=== PATIENT | male | born 1975 | race Two or more races ===

== ENCOUNTER 2017-04-23 17:28 | Emergency (ER) | payer OTHER ==
--- NOTE | 2017-04-23 18:25 | PDOC ---
Rapid Medical Evaluation Time Seen by Provider: 04/23/17 18:13 Medical Evaluation: Allergies Allergy/AdvReac Type Severity Reaction Status Date / Time No Known Drug Allergies Allergy Verified 07/12/13 07:12 04/23/17 18:16 I have performed a brief in-person evaluation of this patient. The patient presents with a chief complaint of: Right testicular swelling, dysuria, no hematuria, + back pain. Generalized body aches and pains. Has been having urinary discomfort for one month. Pertinent physical exam findings: Unable to assess testicle in triage, no CVA tenderness. Abdomen is soft, supra pubic tenderness. I have ordered the following: Right testicular US, UA, UC. The patient will proceed to the ED for further evaluation. Discharge Disposition - Diagnosis Epididymitis - Discharge Dispostion Disposition: HOME Condition at time of disposition: Good - Referrals Referrals: Abdirahman Polanco MD [Staff Physician] - Cindi Fisher MD [Primary Care Provider] - - Patient Instructions Printed Discharge Instructions: DI for Epididymitis Additional Instructions: Please return to the ER if you experience concerning or worsening symptoms including worsening pain, fevers, chest pain, or difficulty breathing. You were seen in the ER for testicular swelling. Your testing showed an infection called epiditimitis. We have given you antibiotics here in the ER. We ask that you refrain from sexual intercourse for the next week as the infection can be cause from sexually transmitted infection. It is extremely important that you call to schedule a follow up appointment with Dr. Polanco with Urology to be evaluated within 1 week and to follow up with your test results. - Post Discharge Activity
[2017-04-23 18:36] VITALS: BP 137/88; PULSE 92; TEMP 99.3; BMI 36.5
[2017-04-23 18:49] LABS: URINE APPEARANCE CLOUDY; URINE BILIRUBIN NEGATIVE (NEGATIVE); URINE BLOOD 2+ (NEGATIVE); URINE COLOR YELLOW; URINE GLUCOSE (UA) NEGATIVE (NEGATIVE); URINE KETONE NEGATIVE (NEGATIVE); URINE NITRITE NEGATIVE (NEGATIVE); URINE PROTEIN 1+ (NEGATIVE); URINE UROBILINOGEN NEGATIVE mg/dL (0.2-1.0)
[2017-04-23 18:50] LABS: URINE LEUK ESTERASE 3+ (NEGATIVE)
--- NOTE | 2017-04-23 19:41 | PDOC ---
History of Present Illness - General Chief Complaint: Penile Drainage Stated Complaint: PAIN Time Seen by Provider: 04/23/17 18:13 - History of Present Illness Initial Comments: 04/23/17 20:43 The patient is a 41 year old male with no significant PMH who presents for evaluation of right testicular swelling. The patient reports a 5 day history of burning and pain on urination with some whitish discharge. He then notes 3 days of right testicular swelling with associated pain and body aches prompting his presentation to the ED today. He states that he has been taking ibuprofen as needed for pain management. He notes that he is sexually active and monogamous with his with last intercourse being 3 days ago. He denies fevers, chest pain, SOB, abdominal pain, nausea, vomiting, or changes with bowel movements. Past History - Past Medical History Allergies/Adverse Reactions: Allergies Allergy/AdvReac Type Severity Reaction Status Date / Time No Known Drug Allergies Allergy Verified 07/12/13 07:12 Home Medications: Ambulatory Orders NK [No Known Home Medication] 04/23/17 Anemia: No Asthma: No Cancer: No Cardiac Disorders: No CVA: No COPD: No CHF: No Dementia: No Diabetes: No GI Disorders: No Disorders: No HTN: No Hypercholesterolemia: Yes (BORDERLINE) Liver Disease: No Seizures: No Thyroid Disease: No - Immunization History Immunization Up to Date: Yes - Suicide/Smoking/Psychosocial Hx Smoking Status: No Smoking History: Never smoked Have you smoked in the past 12 months: No Number of Cigarettes Smoked Daily: 0 Hx Alcohol Use: No Substance Use Type: None Hx Substance Use Treatment: No Review of Systems - Review of Systems Comments:: 04/23/17 20:47 Constitutional: Body aches. No fevers, chills, fatigue, HEENT: No Rhinorrhea, nasal congestion, Cardiovascular: No chest pain, syncope, palpitations, lightheadedness Respiratory: No Cough, SOB, Hemoptysis, Gastrointestinal: No Abdominal pain, Nausea, Vomiting, Constipation, Diarrhea, Melena Genitourinary: Dysuria and discharge. Testicular swelling. No Frequency, Urgency, Hesitancy, Hematuria, Flank pain Musculoskeletal: No Myalgia, arthralgia Skin: No rashes, bruising, pallor Neurologic: No Headache, Dizziness, Numbness, Weakness, or Tingling Psychiatric: No Hallucinations. No SI or HI *Physical Exam - Vital Signs Last Vital Signs Temp Pulse Resp BP Pulse Ox 99.3 F 92 H 18 137/88 99 04/23/17 18:21 04/23/17 18:21 04/23/17 18:21 04/23/17 18:21 04/23/17 18:21 - Physical Exam Comments: 04/23/17 20:48 General Appearance: Nourished. No Apparent Distress HEENT: EOMI, ASH. No Pharyngeal Erythema, Tonsillar Exudate, Tonsillar Erythema Neck: No Cervical Lymphadenopathy Respiratory/Chest: Lungs Clear, Normal Breath Sounds. No Crackles, Rales, Rhonchi, Wheezing Cardiovascular: Regular Rhythm, Regular Rate. No Murmur, Gallops, Rubs Gastrointestinal/Abdominal: Normal Bowel Sounds, Soft. No Guarding, Rebound, Tenderness Genital Exam: Obvious right sided scrotal swelling with tenderness to palpation of the right epididimis. No discharge noted. Normal left scrotal exam. No masses noted. Musculoskeletal: No CVA Tenderness Extremity: Normal Capillary Refill Integumentary: Normal Color, Dry, Warm Neurologic: Fully Oriented, Alert, Normal Mood/Affect, Normal Response, ED Treatment Course - ADDITIONAL ORDERS Additional order review: Laboratory Results 04/23/17 18:28 Urine Color Yellow Urine Appearance Cloudy Urine pH 5.0 Ur Specific [place] 1.021 Urine Protein 1+ H Urine Glucose (UA) Negative Urine Ketones Negative Urine Blood 2+ H Urine Nitrite Negative Urine Bilirubin Negative Urine Urobilinogen Negative Medical Decision Making - Medical Decision Making 04/23/17 20:49 The patient is a 41 year old male with no significant PMH who presents for evaluation of right testicular swelling. Differential includes but is not limited to: Orchitis, Epiditimitis, STI, UTI. Given the patient's physical exam , it is likely the patient's symptoms are due to an epiditimitis. We will obtain a UA and G/C to evaluate further as well as obtain a scrotal US. We will continue to monitor and reassess. 04/23/17 20:51 UA demonstrates elevated wbc consistent with an infectious etiology. US demonstrates signs consistent with acute epiditimits as read by our radiologist. We will treat the patient with ceftriaxone, azithromycin, and ibuprofen. We discussed the results with the patient and the importance of following up with a urologist. We are comfortable discharging the patient home at this time with urology follow up. The patient voiced understanding and is agreeable with the plan. *DC/Admit/Observation/Transfer Diagnosis at time of Disposition: Epididymitis - Discharge Dispostion Disposition: HOME Condition at time of disposition: Good Admit: No - Referrals Referrals: Cindi Fisher MD [Primary Care Provider] - Abdirahman Polanco MD [Staff Physician] - - Patient Instructions Printed Discharge Instructions: DI for Epididymitis Additional Instructions: Please return to the ER if you experience concerning or worsening symptoms including worsening pain, fevers, chest pain, or difficulty breathing. You were seen in the ER for testicular swelling. Your testing showed an infection called epiditimitis. We have given you antibiotics here in the ER. We ask that you refrain from sexual intercourse for the next week as the infection can be cause from sexually transmitted infection. It is extremely important that you call to schedule a follow up appointment with Dr. Polanco with Urology to be evaluated within 1 week and to follow up with your test results. - Post Discharge Activity
[2017-04-23] MEDS ORDERED: IBUPROFEN 600 MG TABLET (FP) PO ONE ×2 (19:49→21:16)
[2017-04-23] MEDS ORDERED: AZITHROMYCIN 1 GM PACKET PO ONE (20:02)
--- NOTE | 2017-04-23 20:05 | PDOC ---
Attending Attestation - Resident Resident Name: Addi Roberts - ED Attending Attestation I have performed the following: I have examined & evaluated the patient, The case was reviewed & discussed with the resident, I agree w/resident's findings & plan - HPI HPI: 04/23/17 20:03 Pt comes with testicular pain x 3 days and dysuria x 5 days. One sexual partner , 04/23/17 20:21 Pt also complains of chills. He has been taking 600 motrin around the clock. Pty is not dehydrated and he has a normal appetite. - Physicial Exam PE: 04/23/17 20:04 Pt has right testicular pain and mild swelling; epididymitis on sono, also varicocele - Medical Decision Making 04/23/17 20:04 Follow with urology; treat with zithromax 1g PO and ceftriaxone IM Follow with . 04/23/17 20:22 No IVF and no blood tests at this time. Pt understands that if he doesn't get better he should return for IV abx and IVF and further testing.
[2017-04-23 20:13] LABS: URINE BACTERIA MODERATE /hpf (NONE SEEN); URINE MUCUS RARE; URINE RBC 141 /hpf (0-3); URINE WBC 744 /hpf (3-5)
[2017-04-23] MEDS ORDERED: AZITHROMYCIN 250 MG TABLET ONE (21:15)
[2017-04-23] MEDS ORDERED: cefTRIAXone SODIUM 1 GM VIAL ONE (21:16)
[2017-04-23] MEDS ORDERED: LIDOCAINE HCL 1%, 10 MG/ML (20ML VIAL) ONE (21:17)
[2017-04-23 23:17] LABS: URINE LEUK ESTERASE 2+ (NEGATIVE)
== END 2017-04-23 21:40 | disposition home or self-care (01) ==
LOC: JERFT 17:28 → JER 17:28
DX: R36.9 Urethral discharge, unspecified (principal); N50.89 Other specified disorders of the male genital organs; N45.1 Epididymitis; I86.1 Scrotal varices
CPT/HCPCS: 36415; 76870-TC; 81003; 81015; 87086; 87491; 87591; 99282-25

== ENCOUNTER 2017-11-19 19:28 | Emergency (ER) | payer OTHER ==
[2017-11-19 19:54] VITALS: BP 134/78; PULSE 77; TEMP 97.8; BMI 39.9
--- NOTE | 2017-11-19 19:54 | PDOC ---
Rapid Medical Evaluation Time Seen by Provider: 11/19/17 19:47 Medical Evaluation: Allergies Allergy/AdvReac Type Severity Reaction Status Date / Time No Known Drug Allergies Allergy Verified 07/12/13 07:12 11/19/17 19:48 Pt presents to the ED with 5 days of headache, neck pain and shoulder pain b/l. Pt has history of migraines, however this pain feels different. States he took naproxen with little relief of symptoms. Admits to nausea. Denies vomiting, fevers. Exam: No gross neuro deficits, ambulatory. AAOX3 Orders: Labs, Urine Pt to present to the ED for further evaluation Discharge Disposition - Diagnosis Headache - Referrals - Patient Instructions - Post Discharge Activity
[2017-11-19 20:19] LABS: BASO % 1.1 % (0-2.0); EOS % 4.7 % (0-4.5); HEMATOCRIT 44.2 % (35.4-49); HEMOGLOBIN 15.1 GM/dL (11.7-16.9); LYMPH % 41.1 % (8-40); MCH 28.1 pg (25.7-33.7); MCHC 34.2 g/dl (32.0-35.9); MEAN CELL VOLUME 82.1 fl (80-96); MEAN PLT VOLUME 8.1 fl (7.5-11.1); MONO % 8.2 % (3.8-10.2); NEUT % 44.9 % (42.8-82.8); PLATELET COUNT 216 K/MM3 (134-434); RBC 5.39 M/mm3 (4.00-5.60); RDW 13.8 % (11.9-15.9); WHITE BLOOD COUNT 7.3 K/mm3 (4.0-10.0)
--- NOTE | 2017-11-19 20:56 | PDOC ---
History of Present Illness - General Chief Complaint: Head/Neck problem Stated Complaint: HEADACHE Time Seen by Provider: 11/19/17 19:47 History Source: Patient Exam Limitations: No Limitations - History of Present Illness Initial Comments: 11/19/17 20:56 Mr. Garcia is a 42 yo M with a hx of migraines (last episode 10 years ago) and GERD who presents to the emergency department with headaches for the past 5 days. The headache is located bilateral temples and behind the eyes bilaterally. This has been constant, dull, non-radiating, 9/10 pain with relieving to 5/10 with 1000 mg of tylenol (last administration 11am). In the past two days, he states he developed another headache in the occipital region to the back of the neck radiating to the trapezius. He endorses the pain worsens with light and noise and is worst in the morning while laying down. He denies the following: fever, loss of consciousness, recent visual changes, ataxia, dizziness, chest pain, SOB, recent URI, sick contacts at the home, dehydration, diarrhea, and dysuria. Pmhx: GERD, migraines (10 years ago) Past History - Past Medical History Allergies/Adverse Reactions: Allergies Allergy/AdvReac Type Severity Reaction Status Date / Time No Known Drug Allergies Allergy Verified 07/12/13 07:12 Home Medications: Ambulatory Orders Ibuprofen 600 mg PO QID PRN #16 tablet 11/19/17 Metoclopramide HCl [Reglan -] 10 mg PO TID PRN #10 tablet 11/19/17 Anemia: No Asthma: No Cancer: No Cardiac Disorders: No CVA: No COPD: No CHF: No Dementia: No Diabetes: No GI Disorders: No Disorders: No HTN: No Hypercholesterolemia: No Kidney Stones: No Liver Disease: No Seizures: No Thyroid Disease: No - Immunization History Immunization Up to Date: Yes - Suicide/Smoking/Psychosocial Hx Smoking Status: No Smoking History: Never smoked Have you smoked in the past 12 months: No Number of Cigarettes Smoked Daily: 0 Hx Alcohol Use: No Drug/Substance Use Hx: No Substance Use Type: None Hx Substance Use Treatment: No *Physical Exam - Vital Signs Last Vital Signs Temp Pulse Resp BP Pulse Ox 97.8 F 77 18 134/78 98 11/19/17 19:49 11/19/17 19:49 11/19/17 19:49 11/19/17 19:49 11/19/17 19:49 ED Treatment Course - LABORATORY CBC & Chemistry Diagram: 11/19/17 20:12 11/19/17 20:12 - ADDITIONAL ORDERS Additional order review: 11/19/17 20:12 RBC 5.39 MCV 82.1 MCHC 34.2 RDW 13.8 MPV 8.1 Neutrophils % 44.9 Lymphocytes % 41.1 H Monocytes % 8.2 Eosinophils % 4.7 H Basophils % 1.1 *DC/Admit/Observation/Transfer Diagnosis at time of Disposition: Headache Qualifiers: Headache type: unspecified Headache chronicity pattern: unspecified pattern Intractability: not intractable Qualified Code(s): R51 - Headache - Discharge Dispostion Disposition: HOME Decision to Admit order: No - Prescriptions Prescriptions: Ibuprofen 600 mg PO QID PRN #16 tablet PRN Reason: Pain Metoclopramide HCl [Reglan -] 10 mg PO TID PRN #10 tablet PRN Reason: Pain - Referrals Referrals: Cindi Fisher MD [Staff Physician] - Shadi Li MD [Staff Physician] - - Patient Instructions Printed Discharge Instructions: DI for Headache - Post Discharge Activity
[2017-11-19 21:03] LABS: ALBUMIN 3.8 g/dl (3.4-5.0); ANION GAP 8 (8-16); BILIRUBIN,TOTAL 0.3 mg/dL (0.2-1.0); BLOOD UREA NITROGEN 9 mg/dL (7-18); CALCIUM 8.8 mg/dL (8.5-10.1); CHLORIDE 107 mmol/L (98-107); CO2 27 mmol/L (21-32); CREATININE 0.8 mg/dL (0.7-1.3); GLUCOSE,RANDOM 112 mg/dL (74-106); SGOT/AST 17 U/L (15-37); SGPT/ALT 32 U/L (12-78); SODIUM 142 mmol/L (136-145); TOT PROT 6.7 g/dl (6.4-8.2)
[2017-11-19 21:04] LABS: ALK PHOS 105 U/L (45-117)
[2017-11-19] MEDS ORDERED: KETOROLAC TROMETHAMINE 30 MG/1 ML VIAL IVPUSH ONE (21:12)
[2017-11-19] MEDS ORDERED: diphenhydrAMINE HCL 25 MG CAPSULE (FP) PO ONE ×2 (21:12→21:24)
[2017-11-19] MEDS ORDERED: METOCLOPRAMIDE HCL INJECTION 10 MG/2 ML VIAL IVPUSH ONE (21:12)
[2017-11-19] MEDS ORDERED: SODIUM CHLORIDE 1,000 ML IV STA (21:12)
[2017-11-19] MEDS ORDERED: METOCLOPRAMIDE HCL INJECTION 10 MG/2 ML VIAL ONE (21:24)
[2017-11-19] MEDS ORDERED: KETOROLAC TROMETHAMINE 30 MG/1 ML VIAL ONE (21:24)
[2017-11-19 21:25] LABS: URINE APPEARANCE CLEAR; URINE BILIRUBIN NEGATIVE (<2.0 mg/dL); URINE COLOR LTYELLOW; URINE GLUCOSE (UA) NEGATIVE (NEGATIVE); URINE KETONE NEGATIVE (NEGATIVE); URINE LEUK ESTERASE NEGATIVE (NEGATIVE); URINE NITRITE NEGATIVE (NEGATIVE); URINE PROTEIN NEGATIVE (NEGATIVE); URINE UROBILINOGEN NEGATIVE mg/dL (0.2-1.0)
--- NOTE | 2017-11-19 22:19 | PDOC ---
Attending Attestation - HPI HPI: 11/19/17 22:31 The patient is a 42 year old male, with a significant past medical history of migraines (last episode 10 years ago), HLD, and GERD, who presents to the emergency department with, 5 days of a headache. He describes his headache as located to the bilateral temples and eyes, dull, constant ranking a 9/10. Hes taken 1000 mg of Ibuprofen this morning, with minimal relief. He reports for the past 2 days his headache has been localized to the occipital region radiating to his shoulders with associated photophobia and phonophobia. The pain worsens when lying down. He denies any recent head and neck trauma. He denies any recent fevers, chills, or dizziness. He denies any recent nausea, vomit, diarrhea or constipation. He denies any recent chest pain or shortness of breath. He denies any recent dysuria, frequency, urgency or hematuria. Allergies: NKA Past surgical history: None reported. Social History: Nonsmoker. Denies EtOH use and recreational drug use. - Physicial Exam PE: 11/19/17 22:31 GENERAL: Awake, alert, and fully oriented, in no acute distress HEAD: No signs of trauma EYES: PERRLA, EOMI, sclera anicteric, conjunctiva clear ENT: Auricles normal inspection, hearing grossly normal, nares patent, oropharynx clear without exudates. Moist mucosa NECK: Normal ROM, supple, no lymphadenopathy, JVD, or masses LUNGS: Breath sounds equal, clear to auscultation bilaterally. No wheezes, and no crackles HEART: Regular rate and rhythm, normal S1 and S2, no murmurs, rubs or gallops ABDOMEN: Soft, nontender, normoactive bowel sounds. No guarding, no rebound. No masses EXTREMITIES: Normal range of motion, no edema. No clubbing or cyanosis. No cords, erythema, or tenderness NEUROLOGICAL: No meningeal signs. Cranial nerves II through XII grossly intact. Normal speech, normal gait. Strength 5/5. No deficits in the motor strength. Normal finger to nose. SKIN: Warm, Dry, normal turgor, no rashes or lesions noted. <Ángela Genao - Last Filed: 11/19/17 22:30> - Resident Resident Name: Randy Dimas - ED Attending Attestation I have performed the following: I have examined & evaluated the patient, The case was reviewed & discussed with the resident, I agree w/resident's findings & plan, Exceptions are as noted - Physicial Exam PE: 11/22/17 08:23 CORRECTION TO SCRIBE NOTE: Pt has CN II-XII intact (not grossly intact) - Medical Decision Making 11/19/17 22:24 A portion of this note was written by my scribe, under my supervision. Vital Signs Temp Pulse Resp BP Pulse Ox 97.8 F 77 18 134/78 98 11/19/17 19:49 11/19/17 19:49 11/19/17 19:49 11/19/17 19:49 11/19/17 19:49 42 year old male with hx of GERD, migraines p/w headache x 5 days. The patient states that he woke up with bi-temporal pressure like headache with photophobia. States pain radiate now to his head and neck. Denies neck stiffness, fevers, chills, cough, vomiting, diarrhea. Pt reported that his headache was 9/10 but improved to 5/10 with tylenol. States felt like his headache 10 years ago when he was diagnosed with a migraine. CBC, BMP 11/19/17 20:12 11/19/17 20:12 CMP Sodium 142 mmol/L (136-145) 11/19/17 20:12 Potassium 4.0 mmol/L (3.5-5.1) 11/19/17 20:12 Chloride 107 mmol/L (98-107) 11/19/17 20:12 Carbon Dioxide 27 mmol/L (21-32) 11/19/17 20:12 Anion Gap 8 (8-16) 11/19/17 20:12 BUN 9 mg/dL (7-18) 11/19/17 20:12 Creatinine 0.8 mg/dL (0.7-1.3) 11/19/17 20:12 Creat Clearance w eGFR > 60 (>60) 11/19/17 20:12 Random Glucose 112 mg/dL (74-106) H 11/19/17 20:12 Calcium 8.8 mg/dL (8.5-10.1) 11/19/17 20:12 Total Bilirubin 0.3 mg/dL (0.2-1.0) 11/19/17 20:12 AST 17 U/L (15-37) 11/19/17 20:12 ALT 32 U/L (12-78) 11/19/17 20:12 Alkaline Phosphatase 105 U/L (45-117) 11/19/17 20:12 Total Protein 6.7 g/dl (6.4-8.2) 11/19/17 20:12 Albumin 3.8 g/dl (3.4-5.0) 11/19/17 20:12 Labs reviewed. No acute findings. I suspect that the patient has a migraine. Pt was given IV toradol, reglan, and benadryl which significantly improved with headaches. Pt would like to go home. Will give referral to a neurologist. Return precautions given. <Lit Acosta - Last Filed: 11/22/17 08:23> Attestations - Attestations 11/19/17 22:31 Documentation prepared by Ángela Genao, acting as medical appointment scheduler for Lit Acosta MD. <Ángela Genao - Last Filed: 11/19/17 22:30>
== END 2017-11-19 23:19 | disposition home or self-care (01) ==
LOC: JER 19:28
PROC: 3E033GC Introduction of Other Therapeutic Substance into Peripheral Vein, Percutaneous Approach (ICD-10-PCS; principal; 2017-11-19)
PROC: 3E0333Z Introduction of Anti-inflammatory into Peripheral Vein, Percutaneous Approach (ICD-10-PCS; 2017-11-19)
DX: G43.909 Migraine, unspecified, not intractable, without status migrainosus (principal); E78.5 Hyperlipidemia, unspecified; K21.9 Gastro-esophageal reflux disease without esophagitis
CPT/HCPCS: 36415; 80053; 81003; 85025; 87086; 96374; 96375; 99283-25; J7030

== ENCOUNTER 2018-12-21 08:12 | Inpatient (IN) | payer OTHER ==
[2018-12-21] MEDS ORDERED: SODIUM CHLORIDE 1,000 ML IV STA (08:49)
[2018-12-21] MEDS ORDERED: morphine CARPU-JECT 4 MG/1 ML DISP.SYRIN IVPUSH ONE (08:49)
[2018-12-21] MEDS ORDERED: morphine SULFATE 4 MG/ML VIAL ONE (08:53)
[2018-12-21 09:15] LABS: BASO % 0.9 % (0-2.0); EOS % 4.6 % (0-4.5); HEMOGLOBIN 15.1 GM/dL (11.7-16.9); LYMPH % 42.4 % (8-40); MCH 27.7 pg (25.7-33.7); MCHC 33.5 g/dl (32.0-35.9); MEAN CELL VOLUME 82.6 fl (80-96); MEAN PLT VOLUME 8.6 fl (7.5-11.1); MONO % 10.1 % (3.8-10.2); PLATELET COUNT 198 K/MM3 (134-434); RBC 5.45 M/mm3 (4.00-5.60); RDW 13.6 % (11.9-15.9); WHITE BLOOD COUNT 7.9 K/mm3 (4.0-10.0)
[2018-12-21 09:29] LABS: ALBUMIN 3.6 g/dl (3.4-5.0); BILIRUBIN,TOTAL 0.4 mg/dL (0.2-1); BLOOD UREA NITROGEN 13.4 mg/dL (7-18); CALCIUM 9.1 mg/dL (8.5-10.1); POTASSIUM 4.1 mmol/L (3.5-5.1); TOT PROT 6.5 g/dl (6.4-8.2)
[2018-12-21] MEDS ORDERED: KETOROLAC TROMETHAMINE 15 MG/ML VIAL IVPUSH ONE (09:54)
[2018-12-21] MEDS ORDERED: KETOROLAC TROMETHAMINE 15 MG/ML VIAL ONE (09:56)
[2018-12-21] MEDS ORDERED: ONDANSETRON 4 MG/2 ML VIAL IVPB ONE (09:59)
[2018-12-21] MEDS ORDERED: ONDANSETRON 4 MG/2 ML VIAL ONE ×2 (10:02→18:02)
[2018-12-21] MEDS ORDERED: DEXTROSE 5%-0.45% SALINE 1,000 ML IV SCH (10:45)
[2018-12-21 11:39] LABS: EPI CELLS 3.7 /HPF (0-5/HPF); HYALINE CASTS 19 /lpf (0-8); URINE APPEARANCE TURBID; URINE BACTERIA 4.1 /hpf (NEGATIVE); URINE BILIRUBIN NEGATIVE (NEGATIVE); URINE COLOR YELLOW; URINE GLUCOSE (UA) NEGATIVE (NEGATIVE); URINE KETONE NEGATIVE (NEGATIVE); URINE LEUK ESTERASE NEGATIVE (NEGATIVE); URINE NITRITE NEGATIVE (NEGATIVE); URINE PROTEIN NEGATIVE (NEGATIVE); URINE RBC 32 /hpf (0-4); URINE UROBILINOGEN 0.2 mg/dL (0.2-1.0); URINE WBC 2 /hpf (0-5)
--- NOTE | 2018-12-21 11:53 | PDOC ---
Documentation entered by Bailey Landeros SCRIBE, acting as scribe for Bj Viera MD. Bj Viera MD: This documentation has been prepared by the Leti carmona Adrianna, SCRIBE, under my direction and personally reviewed by me in its entirety. I confirm that the documentation accurately reflects all work, treatment, procedures, and medical decision making performed by me. History of Present Illness - General Chief Complaint: Pain Stated Complaint: LEFT SIDE PAIN Time Seen by Provider: 12/21/18 08:39 - History of Present Illness Initial Comments: 43 Y M, with PMH of migraines, HLD, and GERD, presents with abdominal pain and back pain for 4 days. Pain is intermittent, most prominent on the LUQ and left lower back. Patient was seen at [facility] for this complaint, where he was told it was muscle pain and was given ibuprofen. He notes his pain has not resolved, prompting his visit to the ED today. Allergies: NKA, NKDA Past surgical history: None reported Social History: Nonsmoker. Denies EtOH use and recreational drug use. Past History - Past Medical History Allergies/Adverse Reactions: Allergies Allergy/AdvReac Type Severity Reaction Status Date / Time No Known Drug Allergies Allergy Verified 12/21/18 08:17 Home Medications: Ambulatory Orders Ibuprofen 600 mg PO QID PRN #16 tablet 11/19/17 Metoclopramide HCl [Reglan -] 10 mg PO TID PRN #10 tablet 11/19/17 Anemia: No Asthma: No Cancer: No Cardiac Disorders: No CVA: No COPD: No CHF: No Dementia: No Diabetes: No GI Disorders: No Disorders: No HTN: No Hypercholesterolemia: No Kidney Stones: No Liver Disease: No Seizures: No Thyroid Disease: No - Immunization History Immunization Up to Date: Yes - Suicide/Smoking/Psychosocial Hx Smoking Status: No Smoking History: Never smoked Have you smoked in the past 12 months: No Number of Cigarettes Smoked Daily: 0 Hx Alcohol Use: No Drug/Substance Use Hx: No Substance Use Type: None Hx Substance Use Treatment: No Review of Systems - Review of Systems Comments:: CONSTITUTIONAL: No fever, no chills, no fatigue EYES: No visual changes ENT: No ear pain, no sore throat CARDIOVASCULAR: No chest pain, no palpitations RESPIRATORY: No cough, no SOB GI: +LUQ pain. No nausea, no vomiting, no constipation, no diarrhea GENITOURINARY: No dysuria, no frequency, no hematuria MUSKULOSKELETAL: +Left lower back pain. No joint pain, no myalgias SKIN: No rash NEURO: No headache *Physical Exam - Vital Signs Last Vital Signs Temp Pulse Resp BP Pulse Ox 98 F 81 18 156/86 99 12/21/18 08:14 12/21/18 08:14 12/21/18 08:14 12/21/18 08:14 12/21/18 08:14 - Physical Exam Comments: CONSTITUTIONAL: +Obese. Well-appearing; well-nourished; in no apparent distress HEAD: Normocephalic; atraumatic EYES: PERRL; EOM intact ENMT: External appears normal; normal oropharynx NECK: Supple; non-tender; no cervical lymphadenopathy CARD: Normal S1, S2; no murmurs, rubs, or gallops RESP: Normal chest excursion with respiration; breath sounds clear and equal bilaterally; no wheezes, rhonchi, or rales ABD: +LUQ tenderness to palpation. Soft, non-distended; no palpable organomegaly , no palpable hernias BACK: +Left CVA tenderness. EXT: Normal ROM in all four extremities; non-tender to palpation; distal pulses intact SKIN: Warm, dry, no rash NEURO: No focal neurological deficiencies. Heart Score/ECG Review - Age Age: </= 45 - Risk Factors Risk Factors Heart Score: Yes Hx Hypercholesterolemia - ECG Intrepretation Rhythm: Regular Rhythm - ECG Impressions Normal ECG: Yes Comment:: Vent rate 72bpm GA interval 160ms QRS duration 102ms QT/QTc 370/405ms P-R-T axes 59 26 31 Normal sinus rhythm ED Treatment Course - LABORATORY CBC & Chemistry Diagram: 12/21/18 08:44 12/21/18 08:44 - ADDITIONAL ORDERS Additional order review: Laboratory Results 12/21/18 12/21/18 11:00 08:44 Sodium 139 Potassium 4.1 Chloride 107 Carbon Dioxide 24 Anion Gap 8 BUN 13.4 Creatinine 1.0 Est GFR (CKD-EPI)AfAm 105.62 Est GFR (CKD-EPI)NonAf 91.13 Random Glucose 120 H Calcium 9.1 Total Bilirubin 0.4 AST 17 ALT 30 Alkaline Phosphatase 93 Total Protein 6.5 Albumin 3.6 Urine Color Yellow Urine Appearance Turbid Urine pH 6.0 Ur Specific [place] 1.023 Urine Protein Negative Urine Glucose (UA) Negative Urine Ketones Negative Urine Blood 3+ H Urine Nitrite Negative Urine Bilirubin Negative Urine Urobilinogen 0.2 Ur Leukocyte Esterase Negative Urine WBC (Auto) 2 Urine RBC (Auto) 32 Urine Casts (Auto) 19 U Epithel Cells (Auto) 3.7 Urine Bacteria (Auto) 4.1 12/21/18 08:44 RBC 5.45 MCV 82.6 MCHC 33.5 RDW 13.6 MPV 8.6 Neutrophils % 42.0 L Lymphocytes % 42.4 H Monocytes % 10.1 Eosinophils % 4.6 H Basophils % 0.9 - RADIOLOGY Radiology Studies Ordered: Category Date Time Status SPIRAL- RENAL-STONE CT [CT] Stat CT Scan 12/21/18 08:50 Completed Radiograph Interpretation: EXAM#: TYPE/EXAM: RESULT: [id number] CT/SPIRAL- RENAL-STONE CT Left flank pain. Rule out stone IMPRESSION: Tiny punctate nonobstructing bilateral renal stones. 9 mm obstructing stone at the left ureterovesical junction with mild left hydronephrosis. Nonobstructive bowel gas pattern. However, there is a short segment of small bowel in the mid abdomen demonstrating fecal like material suggestive of stasis, ileus. Correlate clinically to determine further evaluation and follow-up. Reported By: Lisy Sy MD 12/21/18 10:27 - Medications Given in the ED: ED Medications Discontinued Medications Generic Name Dose Route Start Last Admin Trade Name Freq PRN Reason Stop Dose Admin Morphine Sulfate 4 mg 12/21/18 08:49 12/21/18 09:00 Morphine Injection - IVPUSH 12/21/18 08:50 4 mg ONCE ONE Administration - Consult/PCP Time Called: 11:06 (spoke with doctor ) Case discussed with personal care physician: Georgia Pruitt Case discussed with consulting physician: Gadiel So MD. (11:20am- spoke with Doctor) Medical Decision Making - Medical Decision Making 12/21/18 12:18 Patient is a 43-year-old male who presents with atraumatic left upper quadrant and left flank pain that is waxing waning in severity, colicky in nature without fever/chills/dysuria/hematuria. In the ER, patient is afebrile and writhing in pain. Left upper quadrant and left CVA tenderness is noted. CT of abdomen and pelvis reveals a 9 x 9 mm proximal left ureteral stone with mild left hydronephrosis. We'll consult urology. Likely admission. *DC/Admit/Observation/Transfer Diagnosis at time of Disposition: Nephrolithiasis, Intractable pain - Discharge Dispostion Condition at time of disposition: Fair Decision to Admit order: Yes - Referrals - Patient Instructions - Post Discharge Activity - Attestations Physician Attestion: 12/21/18 12:18 The documentation was prepared by the scribe under my direct supervision. I have reviewed the documentation which correctly represents the findings, medical decision-making and critical action taken by me.
--- NOTE | 2018-12-21 12:40 | HP ---
Admitting History and Physical - Primary Care Physician PCP: Cindi Fisher - Admission Chief Complaint: left sided pain History of Present Illness: developed left sided abdominal pain 5 days ago, went to [facility] er over the weekend was given advil 600 mg for muscle pain and was dcdc home last night pain became very severe despite advil so he came to our er to be evaluated History Source: Patient Limitations to Obtaining History: No Limitations - Past Surgical History Additional Past Surgical History: nasal surgery in - Smoking History Smoking history: Never smoked Have you smoked in the past 12 months: No Aproximately how many cigarettes per day: 0 - Alcohol/Substance Use Hx Alcohol Use: No History of Substance Use: reports: None - Social History ADL: Independent 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 Home Medications - Allergies Allergies/Adverse Reactions: Allergies Allergy/AdvReac Type Severity Reaction Status Date / Time No Known Drug Allergies Allergy Verified 12/21/18 08:17 - Home Medications Home Medications: Ambulatory Orders Ibuprofen 600 mg PO QID PRN #16 tablet 11/19/17 Metoclopramide HCl [Reglan -] 10 mg PO TID PRN #10 tablet 11/19/17 Review of Systems - Review of Systems Constitutional: denies: Chills, Fever, Lethargy, Night Sweats, Weakness Eyes: reports: No Symptoms HENT: reports: No Symptoms Neck: reports: No Symptoms Cardiovascular: reports: No Symptoms Respiratory: reports: No Symptoms Gastrointestinal: reports: No Symptoms. denies: Constipation (has had normal BM last night), Diarrhea, Vomiting Genitourinary: reports: Flank Pain, Urgency. denies: Discharge, Dysuria, Frequency, Hematuria, Incontinence Musculoskeletal: reports: No Symptoms Integumentary: reports: No Symptoms Neurological: reports: No Symptoms Endocrine: reports: No Symptoms Hematology/Lymphatic: reports: No Symptoms Psychiatric: reports: No Symptoms Physical Examination Vital Signs: Vital Signs Temperature 98 F 12/21/18 08:14 Pulse Rate 81 12/21/18 08:14 Respiratory Rate 18 12/21/18 08:14 Blood Pressure 156/86 12/21/18 08:14 O2 Sat by Pulse Oximetry (%) 99 12/21/18 08:14 Constitutional: Yes: Well Nourished, Obese Eyes: Yes: Conjunctiva Clear, EOM Intact HENT: Yes: Atraumatic, Normocephalic Neck: Yes: Supple, Trachea Midline Cardiovascular: Yes: Regular Rate and Rhythm. No: Murmur Respiratory: Yes: CTA Bilaterally Gastrointestinal: Yes: Normal Bowel Sounds, Soft, Abdomen, Obese Renal/: Yes: CVA Tenderness - Left (not over back, but mid abdominal area in mid-axillary line). No: Hematuria, Incontinence Musculoskeletal: Yes: WNL Extremities: Yes: WNL Edema: No Peripheral Pulses WNL: Yes Integumentary: Yes: WNL Neurological: Yes: WNL Psychiatric: Yes: WNL Labs: CBC, BMP 12/21/18 08:44 12/21/18 08:44 Laboratory Results - last 24 hr 12/21/18 12/21/18 12/21/18 08:44 08:44 11:00 WBC 7.9 RBC 5.45 Hgb 15.1 Hct 45.0 MCV 82.6 MCH 27.7 MCHC 33.5 RDW 13.6 Plt Count 198 MPV 8.6 Absolute Neuts (auto) 3.3 Neutrophils % 42.0 L Lymphocytes % 42.4 H Monocytes % 10.1 Eosinophils % 4.6 H Basophils % 0.9 Nucleated RBC % 0 Sodium 139 Potassium 4.1 Chloride 107 Carbon Dioxide 24 Anion Gap 8 BUN 13.4 Creatinine 1.0 Est GFR (CKD-EPI)AfAm 105.62 Est GFR (CKD-EPI)NonAf 91.13 Random Glucose 120 H Calcium 9.1 Total Bilirubin 0.4 AST 17 ALT 30 Alkaline Phosphatase 93 Total Protein 6.5 Albumin 3.6 Urine Color Yellow Urine Appearance Turbid Urine pH 6.0 Ur Specific [place] 1.023 Urine Protein Negative Urine Glucose (UA) Negative Urine Ketones Negative Urine Blood 3+ H Urine Nitrite Negative Urine Bilirubin Negative Urine Urobilinogen 0.2 Ur Leukocyte Esterase Negative Urine WBC (Auto) 2 Urine RBC (Auto) 32 Urine Casts (Auto) 19 U Epithel Cells (Auto) 3.7 Urine Bacteria (Auto) 4.1 Imaging - Results Cat Scan: Report Reviewed Problem List - Problems (1) Hydronephrosis concurrent with and due to calculi of kidney and ureter Code(s): N13.2 - HYDRONEPHROSIS WITH RENAL AND URETERAL CALCULOUS OBSTRUCTION (2) Intractable pain Code(s): R52 - PAIN, UNSPECIFIED (3) Nephrolithiasis Code(s): N20.0 - CALCULUS OF KIDNEY Assessment/Plan iv fluids pain management urology evaluation for lithotrypsy no medical contraindication for urological procedure if EKG is ok
[2018-12-21] MEDS: DEXTROSE 5%-0.45% SALINE 1,000 ML IV SCH ×2 (12:57→16:06)
[2018-12-21 14:20] VITALS: BMI 42.7
--- NOTE | 2018-12-21 14:23 | EKG ---
Test Reason : Blood Pressure : / mmHG Vent. Rate : 072 BPM Atrial Rate : 072 BPM P-R Int : 160 ms QRS Dur : 102 ms QT Int : 370 ms P-R-T Axes : 059 026 031 degrees QTc Int : 405 ms NORMAL SINUS RHYTHM NORMAL ECG NO PREVIOUS ECGS AVAILABLE Confirmed by RAJ MACIAS, NOEL ([id number]) on 12/21/2018 2:22:25 PM Referred By: Confirmed By:NOEL ANTHONY MD
[2018-12-21] MEDS: oxyCODONE HCL 5 MG TABLET PO PRN ×2 (15:01→20:24)
[2018-12-21] MEDS: ACETAMINOPHEN 325 MG TABLET (FP) PO PRN ×2 (15:01→20:25)
--- NOTE | 2018-12-21 17:57 | CON.GU ---
Consult Consult Specialty:: Urology Referred by:: Dr Fisher Reason for Consultation:: Left Renal colic - History of Present Illness Chief Complaint: Left Renal colic History of Present Illness: 43 yo male w left flank and nausea one episode of vomiting - Alcohol/Substance Use Hx Alcohol Use: No History of Substance Use: reports: None - Smoking History Smoking history: Never smoked Have you smoked in the past 12 months: No Aproximately how many cigarettes per day: 0 - Social History ADL: Independent Home Medications - Allergies Allergies/Adverse Reactions: Allergies Allergy/AdvReac Type Severity Reaction Status Date / Time No Known Drug Allergies Allergy Verified 12/21/18 08:17 - Home Medications Home Medications: Ambulatory Orders Ibuprofen 600 mg PO QID PRN #16 tablet 11/19/17 Metoclopramide HCl [Reglan -] 10 mg PO TID PRN #10 tablet 11/19/17 Physical Exam- Vital Signs: Vital Signs Temperature 98.1 F 12/21/18 14:01 Pulse Rate 70 12/21/18 14:01 Respiratory Rate 18 12/21/18 14:01 Blood Pressure 135/85 12/21/18 14:01 O2 Sat by Pulse Oximetry (%) 97 12/21/18 14:01 Renal/: Yes: CVA Tenderness - Left, Menses Present Labs: CBC, BMP 12/21/18 08:44 12/21/18 08:44 Imaging - Results Cat Scan: Image Reviewed Problem List - Problems (1) Ureteral calculus, left Code(s): N20.1 - CALCULUS OF URETER (2) Ureteral calculus, left Assessment/Plan: 43 yo male w left renal colic pain and nausea found to have left 9 mm UVJ stone w hydro Strain urine analgesics one dose abx Code(s): N20.1 - CALCULUS OF URETER
[2018-12-21] MEDS: ONDANSETRON 4 MG/2 ML VIAL IVPB PRN (18:11)
[2018-12-21] MEDS ORDERED: CEFTRIAXONE 1 GM in DEXTROSE 5%-WATER - 50 ML IVPB ONE (18:15)
[2018-12-21] MEDS ORDERED: cefTRIAXone SODIUM 1 GM VIAL ONE (18:37)
[2018-12-21] MEDS ORDERED: DEXTROSE 5%-WATER - 50 ML IVPB ONE (18:37)
[2018-12-22] MEDS: ONDANSETRON 4 MG/2 ML VIAL IVPB PRN (01:24)
[2018-12-22] MEDS: DEXTROSE 5%-0.45% SALINE 1,000 ML IV SCH ×3 (04:04→20:54)
[2018-12-22] MEDS: ACETAMINOPHEN 325 MG TABLET (FP) PO PRN (04:04)
[2018-12-22] MEDS: oxyCODONE HCL 5 MG TABLET PO PRN (04:04)
[2018-12-22 07:49] LABS: BASO % 0.4 % (0-2.0); EOS % 0.2 % (0-4.5); HEMATOCRIT 41.7 % (35.4-49); HEMOGLOBIN 14.3 GM/dL (11.7-16.9); LYMPH % 14.4 % (8-40); MCH 28.2 pg (25.7-33.7); MCHC 34.4 g/dl (32.0-35.9); MEAN PLT VOLUME 8.6 fl (7.5-11.1); MONO % 9.7 % (3.8-10.2); NEUT % 75.3 % (42.8-82.8); PLATELET COUNT 191 K/MM3 (134-434); RBC 5.08 M/mm3 (4.00-5.60); RDW 13.8 % (11.9-15.9); WHITE BLOOD COUNT 10.1 K/mm3 (4.0-10.0)
[2018-12-22 07:59] LABS: ALBUMIN 3.5 g/dl (3.4-5.0); BILIRUBIN,TOTAL 0.5 mg/dL (0.2-1); BLOOD UREA NITROGEN 12.6 mg/dL (7-18); CALCIUM 8.7 mg/dL (8.5-10.1); CREATININE 1.4 mg/dL (0.55-1.3); POTASSIUM 4.1 mmol/L (3.5-5.1); TOT PROT 6.4 g/dl (6.4-8.2)
--- NOTE | 2018-12-22 08:30 | PN ---
Progress Note, Physician History of Present Illness: l renal stone with hydronephrosis - Current Medication List Current Medications: Active Medications Acetaminophen (Tylenol -) 650 mg PO Q4H PRN PRN Reason: PAIN Stop: 12/24/18 13:52 Last Admin: 12/22/18 04:04 Dose: 650 mg Dextrose/Sodium Chloride (D5-1/2ns -) 1,000 mls @ 100 mls/hr IV ASDIR ADA Last Admin: 12/22/18 04:04 Dose: 100 mls/hr Morphine Sulfate (Morphine Injection -) 4 mg IVPUSH Q4H PRN PRN Reason: PAIN LEVEL 7 - 10 Stop: 12/23/18 08:00 Ondansetron HCl (Zofran Injection) 8 mg IVPB Q6H PRN PRN Reason: NAUSEA Last Admin: 12/22/18 01:24 Dose: 8 mg - Objective Vital Signs: Vital Signs Temperature 98 F 12/22/18 06:00 Pulse Rate 77 12/22/18 06:00 Respiratory Rate 20 12/22/18 06:00 Blood Pressure 119/79 12/22/18 06:00 O2 Sat by Pulse Oximetry (%) 97 12/21/18 21:00 Constitutional: Yes: Calm, Obese Eyes: Yes: EOM Intact HENT: Yes: Normocephalic Neck: Yes: Trachea Midline Cardiovascular: Yes: Regular Rate and Rhythm Respiratory: Yes: CTA Bilaterally Gastrointestinal: Yes: Normal Bowel Sounds, Soft, Abdomen, Obese. No: Tenderness Genitourinary: Yes: CVA Tenderness - Left Musculoskeletal: Yes: WNL Extremities: Yes: WNL Edema: No Labs: CBC, BMP 12/22/18 06:57 12/22/18 06:57 - ....Imaging Cat Scan: Report Reviewed EKG: Report Reviewed Problem List - Problems (1) Hydronephrosis concurrent with and due to calculi of kidney and ureter Code(s): N13.2 - HYDRONEPHROSIS WITH RENAL AND URETERAL CALCULOUS OBSTRUCTION (2) Intractable pain Code(s): R52 - PAIN, UNSPECIFIED (3) Nephrolithiasis Code(s): N20.0 - CALCULUS OF KIDNEY Assessment/Plan iv fluids pain management awaiting lithotrypsy and ureteral stent placement today no medical contraindication to proposed procedure.
[2018-12-22] MEDS: morphine SULFATE 4 MG/ML VIAL IVPUSH PRN ×2 (09:27→23:59)
[2018-12-22 09:38] LABS: INR 1.13 (0.83-1.09); PROTHROMBIN TIME (PATIENT) 13.3 SEC (9.7-13.0)
[2018-12-22 09:41] LABS: ACTIVATED PTT 27.5 SECONDS (25.2-36.5)
[2018-12-22] MEDS ORDERED: PROPOFOL 20 ML ONE (12:44)
[2018-12-22] MEDS ORDERED: SUCCINYLCHOLINE CHLORIDE 200 MG/10 ML SYRINGE ONE (12:44)
[2018-12-22] MEDS ORDERED: LACTATED RINGERS SOLUTION 1,000 ML IV SCH (12:45)
[2018-12-22] MEDS ORDERED: ceFAZolin SODIUM 1 GM VIAL IVPB ONE (13:15)
[2018-12-22] MEDS ORDERED: ceFAZolin SODIUM 1 GM VIAL ONE (13:18)
[2018-12-22] MEDS ORDERED: DEXAMETHASONE SOD PHOSPHATE 4 MG/1 ML VIAL ONE (13:19)
[2018-12-22] MEDS ORDERED: HYDROmorphone HCl 2 MG/ML VIAL ONE (13:35)
--- NOTE | 2018-12-22 14:00 | OP ---
Operative Note - Note: Operative Date: 12/22/18 Pre-Operative Diagnosis: Left ureteral stone Operation: Left Ureteroscopy Stent placement Surgeon: Gadiel oS MD. Anesthesia: General Estimated Blood Loss (mls): 10 Operative Report Dictated: Yes
[2018-12-22] MEDS ORDERED: ACETAMINOPHEN 1000 MG/100 ML VIAL (NON FORMULARY) IVPB ONE (14:21)
[2018-12-22] MEDS ORDERED: ACETAMINOPHEN INJECTION 100 ML IVPB ONE (14:42)
--- NOTE | 2018-12-22 16:12 | OP ---
DATE OF OPERATION: 12/22/2018 PREOPERATIVE DIAGNOSIS: Left renal colic. POSTOPERATIVE DIAGNOSIS: Left renal colic. PROCEDURE: Left ureteroscopy and double-J stent placement. HISTORY: This is a 43-year-old gentleman with history of left renal colic, presented approximately 2 days prior to procedure with severe flank pain, nausea, and vomiting. After discussing treatment options, the patient elected to undergo the above-stated procedure. Risks and benefits and treatment alternatives were discussed in detail. All questions were answered. BRIEF OPERATIVE NOTE: Patient brought to the operating room, placed in supine position. Once general anesthesia was administered, the patient was transferred to dorsal lithotomy position, prepped and draped in standard sterile fashion. Intravenous antibiotics were given. At this time, a 23-Guamanian cystoscope sheath was placed into the bladder under direct vision. The prostate was unremarkable. There were no urethral strictures. The bladder was also unremarkable. Two 0.038 guidewires were passed into the left ureteral orifice, up into the renal pelvis. This was confirmed fluoroscopically. After the placement of the first wire, a dual lumen was used to perform retrograde ureteral pyelogram. A stone was visible in the proximal ureter. There was question of a calcification in the distal ureter; so, a 7-Guamanian Storz ureteroscope was used to visualize the distal ureter up to the level of above the iliac vessels. There was no pathology identified. However, there was some narrowing of the distal ureter. At this time, a flexible scope was attempted to be placed over a guidewire. After multiple attempts were unsuccessful, due to the patient having had some cloudy urine with possible low-grade of infection, decision was made not to dilate the ureter. At this time, ureteroscope was removed, and a 6-[place]amanian 22-cm double-J stent was passed over the initial wire and fluoroscopically noted to be in normal position. All instruments removed. The bladder was drained. Patient was brought to recovery room in stable and satisfactory condition. CORAL LINDSEY M.D. JOSE [id number]
[2018-12-22] MEDS ORDERED: HYDROmorphone HCl 2 MG/ML VIAL IVPUSH ONE (16:30)
[2018-12-23] MEDS: morphine SULFATE 4 MG/ML VIAL IVPUSH PRN (04:38)
[2018-12-23] MEDS: DEXTROSE 5%-0.45% SALINE 1,000 ML IV SCH ×2 (05:28→13:05)
[2018-12-23 08:45] LABS: HEMATOCRIT 41.7 % (35.4-49); HEMOGLOBIN 14.2 GM/dL (11.7-16.9); MCH 27.9 pg (25.7-33.7); MCHC 34.1 g/dl (32.0-35.9); MEAN CELL VOLUME 81.8 fl (80-96); MEAN PLT VOLUME 8.5 fl (7.5-11.1); PLATELET COUNT 204 K/MM3 (134-434); RBC 5.09 M/mm3 (4.00-5.60); RDW 14.2 % (11.9-15.9); WHITE BLOOD COUNT 9.7 K/mm3 (4.0-10.0)
[2018-12-23] MEDS ORDERED: IBUPROFEN 600 MG TABLET (FP) PO PRN (08:46)
--- NOTE | 2018-12-23 09:04 | PN ---
Progress Note, Physician Chief Complaint: POD1 s/p cysto with stent - Current Medication List Current Medications: Active Medications Acetaminophen (Tylenol -) 650 mg PO Q4H PRN PRN Reason: PAIN Stop: 12/24/18 13:52 Last Admin: 12/22/18 04:04 Dose: 650 mg Fentanyl (Sublimaze Injection -) 50 mcg IVPUSH [id number] PRN PRN Reason: PAIN-PACU ORDER X 4 DOSES ONLY Last Admin: 12/22/18 16:00 Dose: 25 mcg Dextrose/Sodium Chloride (D5-1/2ns -) 1,000 mls @ 100 mls/hr IV ASDIR ADA Last Admin: 12/23/18 05:28 Dose: 100 mls/hr Ibuprofen (Motrin -) 600 mg PO Q6H PRN PRN Reason: FEVER Ondansetron HCl (Zofran Injection) 8 mg IVPB Q6H PRN PRN Reason: NAUSEA Last Admin: 12/22/18 01:24 Dose: 8 mg Trimethoprim/Sulfamethoxazole (Bactrim Ds -) 1 each PO BID ADA - Objective Vital Signs: Vital Signs Temperature 98.9 F 12/23/18 04:46 Pulse Rate 71 12/23/18 04:46 Respiratory Rate 20 12/23/18 04:46 Blood Pressure 135/89 12/23/18 04:46 O2 Sat by Pulse Oximetry (%) 94 L 12/22/18 21:00 Labs: CBC, BMP 12/23/18 07:59 INR, PTT INR 1.13 (0.83-1.09) H 12/22/18 09:15 Assessment/Plan Pt is s/p GA for cystoscopy with stent. Pt complains of pain on urination ( penis area), as well as an aching in left flank area - advised him to bring that to the attention of his surgical team as well. No N/V, no ECHEVARRIA, VSS, no anesthetic issues/complcations noted
--- NOTE | 2018-12-23 09:05 | DS ---
Physical Examination Vital Signs: Vital Signs Temperature 98.9 F 12/23/18 04:46 Pulse Rate 71 12/23/18 04:46 Respiratory Rate 20 12/23/18 04:46 Blood Pressure 135/89 12/23/18 04:46 O2 Sat by Pulse Oximetry (%) 94 L 12/22/18 21:00 Constitutional: Yes: No Distress, Calm Eyes: Yes: EOM Intact HENT: Yes: Normocephalic Neck: Yes: Trachea Midline Cardiovascular: Yes: Regular Rate and Rhythm Respiratory: Yes: CTA Bilaterally Gastrointestinal: Yes: Normal Bowel Sounds, Soft, Abdomen, Obese Musculoskeletal: Yes: WNL Edema: No Psychiatric: Yes: WNL Labs: CBC, BMP 12/23/18 07:59 Discharge Summary Reason For Visit: CALCULUS OF KIDNEY Current Active Problems Hydronephrosis concurrent with and due to calculi of kidney and ureter (Acute) Intractable pain (Acute) Nephrolithiasis (Acute) Ureteral calculus, left (Acute) Ureteral calculus, left (Acute) Procedures: Principal: 12/22/18 Left ureteral stone, s/p Left Ureteroscopy Stent placement. Surgeon: Gadiel So MD. Hospital Course: admitted for left sided abd/flank pain and 9mm renal stone underwent on 12/22/18 Left Ureteroscopy with Stent placement-plrease see detailed op.note. will need oral abx and will f/up as outpt for lithotripsy. Condition: Fair - Instructions Disposition: HOME - Home Medications Comprehensive Discharge Medication List: Ambulatory Orders Ibuprofen 600 mg PO QID PRN #16 tablet 11/19/17 Metoclopramide HCl [Reglan -] 10 mg PO TID PRN #10 tablet 11/19/17
[2018-12-23 09:09] LABS: BLOOD UREA NITROGEN 11.6 mg/dL (7-18); CALCIUM 8.9 mg/dL (8.5-10.1); POTASSIUM 3.9 mmol/L (3.5-5.1)
[2018-12-23] MEDS ORDERED: SULFAMETHOXAZOLE/TRIMETHOPRIM 800MG/160MG D.S. TABLET PO SCH (10:00)
[2018-12-23 15:17] VITALS: BP 139/78; PULSE 84; TEMP 98.1
== END 2018-12-23 17:28 | disposition home or self-care (01) | DRG 465 ==
LOC: JER 08:12 → JERBED 11:53 → J5S 13:40
PROVIDERS: ADMIT Internal Medicine; ATTEND Internal Medicine
PROC: 0T778DZ Dilation of Left Ureter with Intraluminal Device, Via Natural or Artificial Opening Endoscopic (ICD-10-PCS; principal; 2018-12-22 11:30)
DX: N13.2 Hydronephrosis with renal and ureteral calculous obstruction (principal); E78.5 Hyperlipidemia, unspecified; K21.9 Gastro-esophageal reflux disease without esophagitis; M54.9 Dorsalgia, unspecified; G43.909 Migraine, unspecified, not intractable, without status migrainosus; R11.2 Nausea with vomiting, unspecified; E66.01 Morbid (severe) obesity due to excess calories; Z68.41 Body mass index [BMI] 40.0-44.9, adult; K56.7 Ileus, unspecified
CPT/HCPCS: 36415; 74176-TC; 76000-TC-FY; 80048; 80053; 81003; 85025; 85027; 85610; 85730; 87086; 93005; 93010; 94760; 99283-25; J0131; J7030

== ENCOUNTER 2019-01-03 09:29 | Day surgery (SDC) | payer OTHER | END 2019-01-03 13:45 | disposition home or self-care (01) | LOC: JASU-SURG 09:29 ==

== ENCOUNTER 2019-02-14 08:27 | Day surgery (SDC) | payer OTHER ==
[2019-02-10 13:00] VITALS: BMI 41.9
[2019-02-14] MEDS ORDERED: MIDAZOLAM HCL 2 MG/2 ML SINGLE DOSE VIAL ONE (10:10)
[2019-02-14] MEDS ORDERED: PROPOFOL 20 ML ONE (10:11)
[2019-02-14] MEDS ORDERED: DEXAMETHASONE SOD PHOSPHATE 4 MG/1 ML VIAL ONE (10:11)
[2019-02-14] MEDS ORDERED: LIDOCAINE HCL/PF 2% SDV 5ML VIAL ONE (10:11)
[2019-02-14] MEDS ORDERED: ceFAZolin SODIUM 1 GM VIAL IVPB ONE (10:30)
[2019-02-14] MEDS ORDERED: ceFAZolin SODIUM 1 GM VIAL ONE (10:32)
[2019-02-14] MEDS ORDERED: ELECTROLYTE-148 SOLN 1,000 ML IV SCH (11:30)
--- NOTE | 2019-02-14 11:30 | OP ---
Operative Note - Note: Operative Date: 02/14/19 Pre-Operative Diagnosis: Left kidney stone Operation: Left lithotripsy Findings: left 9 mm renal stone Post-Operative Diagnosis: Same as Pre-op Surgeon: Gadiel So MD. Anesthesia: General Operative Report Dictated: Yes
[2019-02-14] MEDS ORDERED: ACETAMINOPHEN 325 MG TABLET (FP) PO PRN (11:45)
[2019-02-14] MEDS ORDERED: ONDANSETRON 4 MG/2 ML VIAL IVPUSH PRN (11:45)
[2019-02-14 12:53] VITALS: BP 123/79; PULSE 63; TEMP 98.1
--- NOTE | 2019-02-14 19:44 | OP ---
DATE OF OPERATION: 02/14/2019 PREOPERATIVE DIAGNOSIS: Left renal calculus. POSTOPERATIVE DIAGNOSIS: Left renal calculus. PROCEDURE: Left extracorporeal shockwave lithotripsy. HISTORY: This is a very pleasant 43-year-old gentleman with a history of presenting to the ER with prior renal colic. At that time he was having urosepsis. The patient underwent a stent placement at that time to [facility]. The patient had a prior lithotripsy which created the fragment stone, however there was larger fragment still present. After discussing treatment options including ureteroscopy, the patient elected to undergo a repeat lithotripsy. Risks and benefits of treatment and alternatives discussed in detail. All questions answered. BRIEF OPERATIVE NOTE: The patient is brought in the operating room, placed in supine position. Once the stone was localized using 3-D fluoroscopy as well as ultrasonography, a timeout was performed. Intravenous antibiotics were given, and sedation was administered. At this time, approximately 2500 shocks were delivered in fashion. The stone appeared to fragment radiographically . The patient tolerated procedure well and was transferred to recovery room in stable and satisfactory condition. CORAL LINDSEY M.D. JOSE [id number]
== END 2019-02-14 12:45 | disposition home or self-care (01) ==
LOC: JASU-SURG 08:27
PROVIDERS: ATTEND Urology
PROC: 0TF4XZZ Fragmentation in Left Kidney Pelvis, External Approach (ICD-10-PCS; principal; 2019-02-14 10:00)
DX: N20.0 Calculus of kidney (principal); G47.30 Sleep apnea, unspecified; E66.9 Obesity, unspecified

== ENCOUNTER 2021-09-20 23:12 | Emergency (ER) | payer OTHER ==
[2021-09-20 23:25] VITALS: BP 147/76; PULSE 89; TEMP 98.9; BMI 38.7
[2021-09-21] MEDS ORDERED: AZITHROMYCIN 250 MG TABLET PO ONE (01:07)
[2021-09-21] MEDS ORDERED: AZITHROMYCIN 250 MG TABLET ONE (01:23)
== END 2021-09-21 02:19 | disposition left against medical advice (07) ==
LOC: JER 23:12 → JERFT 23:12
DX: R05.9 Cough, unspecified (principal)
CPT/HCPCS: 99284-25